=== PATIENT | male | born 1970 | race Caucasian/White ===

== ENCOUNTER 2022-10-24 18:49 | Emergency (ER) | payer OTHER ==
[~2022-10-24] VITALS: Ht 177.8 cm; Wt 113.4 kg
[2022-10-24 18:56] VITALS: BP 195/124
[2022-10-25] MEDS ORDERED: FAMO20 PO (00:11)
[2022-10-25] MEDS ORDERED: ONDA4ODT MM (00:11)
== END 2022-10-25 03:29 | disposition home or self-care (01) ==
LOC: ER 18:49
DX: R10.12 Left upper quadrant pain (principal); R11.2 Nausea with vomiting, unspecified; Z88.5 Allergy status to narcotic agent
CPT/HCPCS: 74177; 80053; 83690; 85025; 96374-59; 99284-25; A9270; J2405; J2765; Q9967